=== PATIENT | male | born 1960 | race Caucasian/White ===

== ENCOUNTER 2017-12-29 09:43 | Observation (INO) | payer OTHER, SELFPAY ==
[2017-12-29] MEDS ORDERED: NA CHLORIDE 0.9% 1,000 ML ONE ×2 (10:27→12:11)
[2017-12-29 10:40] LABS: Absolute Lymphocytes (CBC) 0.8 K/uL (0.7-4.9); Absolute Monocytes 1.2 K/uL (0.1-1.3); Basophils % 0.4 % (0-1.3); Eosinophils % 0.1 % (0-4.4); Hematocrit 42.8 % (39.6-49.0); Lymphocytes % 8.4 % (15.3-44.8); MCH 29.6 pg (27.0-35.0); MPV 9.1 fL (7.6-11.3); Monocytes % 11.9 % (3.3-12.3); RBC Red Blood Cell Count 4.91 M/uL (4.33-5.43)
[2017-12-29 11:13] LABS: Albumin 3.1 g/dL (3.4-5.0); Bilirubin Direct 0.3 mg/dL (0-0.2); Bilirubin Total 0.9 mg/dL (0.2-1.0); Potassium 3.7 mmol/L (3.5-5.1)
[2017-12-29] MEDS ORDERED: INSULIN -REGULAR HUMAN 50 UNIT/0.5 ML ML ONE (11:37)
[2017-12-29 13:38] LABS: Urine Blood NEGATIVE (NEG); Urine Glucose 1+ (NEG); Urine Protein 1+ (NEG); Urine Specific Gravity >1.030 (1.005-1.030)
--- NOTE | 2017-12-29 16:27 | ER ---
Nurse's Notes [facility] Name: Pedro Leonard Age: 57 yrs Sex: Male : 1960 Arrival Date: 12/29/2017 Time: 09:46 Bed 13 Private MD: None, None Diagnosis: Weakness;Dehydration;Hyperglycemia, unspecified;Hypotension Presentation: 12/29 09:51 Presenting complaint: Patient states: Diarrhea for 3 days and joint pain, no longer la1 able to make it to the bathroom on time, denies abd pain or vomiting. Transition of care: patient was not received from another setting of care. Onset of symptoms was December 29, 2017. Risk Assessment: Do you want to hurt yourself or someone else? Patient reports no desire to harm self or others. Initial Sepsis Screen: Does the patient meet any 2 criteria? No. Patient's initial sepsis screen is negative. Does the patient have a suspected source of infection? No. Patient's initial sepsis screen is negative. Care prior to arrival: None. 09:51 Method Of Arrival: Ambulatory la1 09:51 Acuity: ARETHA 3 la1 Triage Assessment: 09:57 General: Appears in no apparent distress. uncomfortable, Behavior is calm, cooperative, hj appropriate for age. GI: Reports diarrhea. 09:57 Pain: Denies pain. hj Historical: - Allergies: 09:53 No Known Allergies; la1 - PMHx: 09:53 Diabetes - NIDDM; Hypertension; la1 - PSHx: 09:53 None; la1 - Immunization history:: Adult Immunizations up to date. - Social history:: Smoking status: Patient uses tobacco products, chewing tobacco. - Ebola Screening: : No symptoms or risks identified at this time. Screenin:56 Abuse screen: Denies threats or abuse. Denies injuries from another. Nutritional hj screening: No deficits noted. Tuberculosis screening: No symptoms or risk factors identified. Fall Risk None identified. Assessment: 10:15 Reassessment: reports diarrhea for 3 days;. General: Appears in no apparent distress. hj uncomfortable, Behavior is calm, cooperative, appropriate for age. Pain: Denies pain. Neuro: Level of Consciousness is awake, alert, obeys commands, Oriented to person, place, time, situation, Appropriate for age. Cardiovascular: Capillary refill < 3 seconds Patient's skin is warm and dry. Respiratory: Airway is patent Respiratory effort is even, unlabored, Respiratory pattern is regular, symmetrical. GI: Reports diarrhea. : No signs and/or symptoms were reported regarding the genitourinary system. EENT: No signs and/or symptoms were reported regarding the EENT system. Derm: No signs and/or symptoms reported regarding the dermatologic system. Musculoskeletal: No signs and/or symptoms reported regarding the musculoskeletal system. 11:05 Reassessment: Patient and/or family updated on plan of care and expected duration. Pain hj level reassessed. Patient is alert, oriented x 3, equal unlabored respirations, skin warm/dry/pink. awaiting results and POC;. 12:14 Reassessment: Patient and/or family updated on plan of care and expected duration. Pain hj level reassessed. Patient is alert, oriented x 3, equal unlabored respirations, skin warm/dry/pink. pt BP - 89/65; provider aware, with orders to give 1 L NS bolus;. 13:06 Reassessment: Patient and/or family updated on plan of care and expected duration. Pain hj level reassessed. Patient is alert, oriented x 3, equal unlabored respirations, skin warm/dry/pink. pt was reminded for the 3rd time for stool specimen; provided bed side commode and was told to try; family in room;. 14:00 Reassessment: able to get stool sample, sent to lab;. hj 15:08 Reassessment: Patient and/or family updated on plan of care and expected duration. Pain hj level reassessed. Patient is alert, oriented x 3, equal unlabored respirations, skin warm/dry/pink. awaiting results and POC;. 16:09 Reassessment: Patient appears in no apparent distress at this time. Patient and/or jb4 family updated on plan of care and expected duration. Pain level reassessed. Patient is alert, oriented x 3, equal unlabored respirations, skin warm/dry/pink. 16:40 Reassessment: Patient and/or family updated on plan of care and expected duration. Pain hj level reassessed. Patient is alert, oriented x 3, equal unlabored respirations, skin warm/dry/pink. for admit, hospitalist in room;. Vital Signs: 09:53 BP 106 / 68; Pulse 86; Resp 16; Temp 98.0; Pulse Ox 96% on R/A; Weight 104.33 kg (R); la1 Height 5 ft. 9 in. (175.26 cm); 11:06 BP 110 / 70; Pulse 84; Resp 18; Pulse Ox 100% on R/A; hj 12:13 BP 96 / 55; Pulse 75; Resp 18; Pulse Ox 100% on R/A; hj 13:06 BP 107 / 63; Pulse 88; Resp 18; Pulse Ox 100% on R/A; hj 14:13 BP 101 / 63; Pulse 90; Resp 18; Pulse Ox 100% on R/A; hj 15:08 BP 106 / 51; Pulse 70; Resp 18; Pulse Ox 100% on R/A; hj 15:30 BP 94 / 56 RA Supine; Pulse 74; jb4 15:32 BP 95 / 58 RA Sitting; Pulse 74; jb4 15:33 BP 93 / 58 RA Standing; Pulse 83; jb4 15:43 BP 100 / 59; Pulse 75; Resp 18; Pulse Ox 96% on R/A; hj 16:40 BP 100 / 61; Pulse 70; Resp 18; Pulse Ox 100% on R/A; hj 09:53 Body Mass Index 33.96 (104.33 kg, 175.26 cm) la1 ED Course: 09:46 Patient arrived in ED. mr 09:46 None, None is Private Physician. mr 09:52 Triage completed. la1 09:53 Arm band placed on left wrist. la1 09:54 [facility] Grijalva [facility]C [facility] kb 09:54 Rowdy Kwan MD is Attending Physician. kb 09:56 Colton Buenrostro, DIONY is Primary Nurse. hj 09:57 Patient has correct armband on for positive identification. Placed in gown. Bed in low hj position. Call light in reach. Side rails up X 1. Adult w/ patient. 10:15 Initial lab(s) drawn, by me. Inserted saline lock: 22 gauge in left forearm, using aseptic technique. Blood collected. 11:17 Notified ED physician of a critical lab result(s). BGL 429. jb4 12:28 EKG done, by tooling engineering tech. reviewed by Juana HARRIS. at1 13:16 Stool Culture Sent. hj 13:16 CDIFF Sent. hj 16:26 Chirag Craft MD is Hospitalizing Provider. kb 17:51 No provider procedures requiring assistance completed. Patient admitted, IV remains in jb4 place. intact. Administered Medications: 10:15 Drug: NS 0.9% 1000 ml Route: IV; Rate: 1000 ml; Site: left forearm; hj 11:31 Drug: Insulin Regular Human 10 units {Co-Signature: lisa (Marisel Lucas RN).} Route: hj IVP; Site: left forearm; 11:34 Follow up: Response: No adverse reaction hj 12:06 Drug: NS 0.9% 1000 ml Route: IV; Rate: 1000 ml; Site: left forearm; jb4 14:00 Follow up: IV Status: Completed infusion; IV Intake: 1000ml jb4 Point of Care Testing: Blood Glucose: 12:13 Blood Glucose: 319 mg/dL; hj 14:13 Blood Glucose: 300 mg/dL; hj Ranges: Intake: 14:00 IV: 1000ml; Total: 1000ml. jb4 Outcome: 16:27 Decision to Hospitalize by Provider. kb 17:52 Admitted to Med/surg accompanied by tech, family with patient, via wheelchair, room jb4 229, with chart, Report called to DIONY Rios 17:52 Condition: stable 17:52 Instructed on the need for admit, Demonstrated understanding of instructions. 17:52 Patient left the ED. jb4 Signatures: Juana Grijalva, KIMBERLY CHOPRA-Lakisha Oneil Emily sanchez, combine mechanic EKG Tat1 Seven Landeros RN RN la1 Colton Buenrostro RN RN hj Bryson, James, RN RN jb4 Marisel gonzalez
--- NOTE | 2017-12-29 16:27 | EDPHYS ---
Physician Documentation [facility] Name: Pedro Leonard Age: 57 yrs Sex: Male : 1960 Arrival Date: 12/29/2017 Time: 09:46 Bed 13 Private MD: None, None ED Physician Rowdy Kwan HPI: 12/29 10:51 This 57 yrs old Male presents to ER via Ambulatory with complaints of kb Diarrhea. 12:17 The patient presents to the emergency department with diarrhea. Onset: The kb symptoms/episode began/occurred 3 day(s) ago. Possible causes: unknown. The symptoms are aggravated by nothing. The symptoms are alleviated by nothing. Associated signs and symptoms: Pertinent positives: diarrhea, weakness, high blood sugar. Severity of symptoms: At their worst the symptoms were moderate severe in the emergency department the symptoms are unchanged. The patient has not experienced similar symptoms in the past. The patient has not recently seen a physician. Pt reports diarrhea for 3 days that is getting worse. Fasting blood sugar was high this morning and he feels weak. Historical: - Allergies: 09:53 No Known Allergies; la1 - PMHx: 09:53 Diabetes - NIDDM; Hypertension; la1 - PSHx: 09:53 None; la1 - Immunization history:: Adult Immunizations up to date. - Social history:: Smoking status: Patient uses tobacco products, chewing tobacco. - Ebola Screening: : No symptoms or risks identified at this time. ROS: 12:16 Constitutional: Negative for fever, chills, and weight loss, Cardiovascular: Negative kb for chest pain, palpitations, and edema, Respiratory: Negative for shortness of breath, cough, wheezing, and pleuritic chest pain, Back: Negative for injury and pain, : Negative for injury, bleeding, discharge, and swelling, MS/Extremity: Negative for injury and deformity, Skin: Negative for injury, rash, and discoloration. 12:16 Abdomen/GI: Positive for diarrhea, Negative for abdominal pain, nausea and vomiting. 12:16 Neuro: Positive for weakness. Exam: 12:16 Constitutional: This is a well developed, well nourished patient who is awake, alert, kb and in no acute distress. Head/Face: Normocephalic, atraumatic. Chest/axilla: Normal chest wall appearance and motion. Nontender with no deformity. No lesions are appreciated. Cardiovascular: Regular rate and rhythm with a normal S1 and S2. No gallops, murmurs, or rubs. Normal PMI, no JVD. No pulse deficits. Respiratory: Lungs have equal breath sounds bilaterally, clear to auscultation and percussion. No rales, rhonchi or wheezes noted. No increased work of breathing, no retractions or nasal flaring. Abdomen/GI: Soft, non-tender, with normal bowel sounds. No distension or tympany. No guarding or rebound. No evidence of tenderness throughout. Back: No spinal tenderness. No costovertebral tenderness. Full range of motion. Skin: Warm, dry with normal turgor. Normal color with no rashes, no lesions, and no evidence of cellulitis. MS/ Extremity: Pulses equal, no cyanosis. Neurovascular intact. Full, normal range of motion. Neuro: Awake and alert, GCS 15, oriented to person, place, time, and situation. Cranial nerves II-XII grossly intact. Motor strength 5/5 in all extremities. Sensory grossly intact. Cerebellar exam normal. Normal gait. Vital Signs: 09:53 BP 106 / 68; Pulse 86; Resp 16; Temp 98.0; Pulse Ox 96% on R/A; Weight 104.33 kg (R); la1 Height 5 ft. 9 in. (175.26 cm); 11:06 BP 110 / 70; Pulse 84; Resp 18; Pulse Ox 100% on R/A; hj 12:13 BP 96 / 55; Pulse 75; Resp 18; Pulse Ox 100% on R/A; hj 13:06 BP 107 / 63; Pulse 88; Resp 18; Pulse Ox 100% on R/A; hj 14:13 BP 101 / 63; Pulse 90; Resp 18; Pulse Ox 100% on R/A; hj 15:08 BP 106 / 51; Pulse 70; Resp 18; Pulse Ox 100% on R/A; hj 15:30 BP 94 / 56 RA Supine; Pulse 74; jb4 15:32 BP 95 / 58 RA Sitting; Pulse 74; jb4 15:33 BP 93 / 58 RA Standing; Pulse 83; jb4 15:43 BP 100 / 59; Pulse 75; Resp 18; Pulse Ox 96% on R/A; hj 16:40 BP 100 / 61; Pulse 70; Resp 18; Pulse Ox 100% on R/A; hj 09:53 Body Mass Index 33.96 (104.33 kg, 175.26 cm) la1 MDM: 09:54 Patient medically screened. kb 12:17 Data reviewed: vital signs, nurses notes. Data interpreted: Pulse oximetry: on room air kb is 100 %. Interpretation: normal. 15:41 Physician consultation: Chirag Craft MD was called at 15:30. kb 16:26 Counseling: I had a detailed discussion with the patient and/or guardian regarding: the kb historical points, exam findings, and any diagnostic results supporting the discharge/admit diagnosis, lab results, radiology results, the need for further work-up and treatment in the hospital. Physician consultation: Chirag Craft MD was contacted at 16:26, regarding admission, to the telemetry unit. patient's condition, and will see patient. 12/29 10:19 Order name: Amylase, Serum; Complete Time: 11:20 kb 12/29 10:19 Order name: Basic Metabolic Panel; Complete Time: 11:20 kb 12/29 10:19 Order name: CBC with Diff; Complete Time: 10:47 kb 12/29 10:19 Order name: Hepatic Function; Complete Time: 11:20 kb 12/29 10:19 Order name: Lipase; Complete Time: 11:20 kb 12/29 10:19 Order name: Stool Culture kb 12/29 10:19 Order name: IV Saline Lock; Complete Time: 10:21 kb 12/29 10:19 Order name: Labs collected and sent; Complete Time: 10:21 kb 12/29 10:19 Order name: CDIFF kb 12/29 12:06 Order name: EKG; Complete Time: 12:06 kb 12/29 13:15 Order name: Urine Dipstick--Ancillary (enter results); Complete Time: 13:43 ag 12/29 10:19 Order name: Urine Dipstick-Ancillary (obtain specimen); Complete Time: 13:16 kb 12/29 12:06 Order name: EKG - Nurse/Tech; Complete Time: 12:15 kb 12/29 14:02 Order name: Blood Glucose Level; Complete Time: 14:07 kb 12/29 15:29 Order name: Orthostatics; Complete Time: 15:38 kb Administered Medications: 10:15 Drug: NS 0.9% 1000 ml Route: IV; Rate: 1000 ml; Site: left forearm; hj 11:31 Drug: Insulin Regular Human 10 units {Co-Signature: iw (Marisel Lucas RN).} Route: hj IVP; Site: left forearm; 11:34 Follow up: Response: No adverse reaction hj 12:06 Drug: NS 0.9% 1000 ml Route: IV; Rate: 1000 ml; Site: left forearm; jb4 14:00 Follow up: IV Status: Completed infusion; IV Intake: 1000ml jb4 Point of Care Testing: Blood Glucose: 12:13 Blood Glucose: 319 mg/dL; hj 14:13 Blood Glucose: 300 mg/dL; hj Ranges: Critical Glucose Levels:Adult <50 mg/dl or >400 mg/dl <40 mg/dl or >180 mg/dl Disposition: 12/30 15:48 Co-signature as Attending Physician, Rowdy Kwan MD. Disposition: 12/29/17 16:27 Hospitalization ordered by Chirag Craft for Observation. Preliminary diagnosis are Weakness, Dehydration, Hyperglycemia, unspecified, Hypotension. - Bed requested for Telemetry/MedSurg (observation). - Status is Observation. jb4 - Condition is Stable. - Problem is new. - Symptoms are unchanged. UTI on Admission? No Signatures: Dispatcher [employer] EDMS Juana Grijalva, NAV-C LOCKSTITCH COAT JOINER-CkSeven Goins, RN RN Shantal Felix Henry, RN DIONY Pedro Palmer RN RN jb4 Rowdy Kwan MD MD Marisel Lucas RN Corrections: (The following items were deleted from the chart) 12/29 16:29 16:27 Hospitalization Ordered by Chirag Craft MD for Observation. Preliminary diagnosis kb is Weakness; Dehydration; Hyperglycemia, unspecified. Bed requested for Telemetry/MedSurg (observation). Status is Observation. Condition is Stable. Problem is new. Symptoms are unchanged. UTI on Admission? No. kb 16:53 16:29 12/29/2017 16:27 Hospitalization Ordered by Chirag Craft MD for Observation. ag Preliminary diagnosis is Weakness; Dehydration; Hyperglycemia, unspecified; Hypotension. Bed requested for Telemetry/MedSurg (observation). Status is Observation. Condition is Stable. Problem is new. Symptoms are unchanged. UTI on Admission? No. kb 17:52 16:53 12/29/2017 16:27 Hospitalization Ordered by Chirag Craft MD for Observation. jb4 Preliminary diagnosis is Weakness; Dehydration; Hyperglycemia, unspecified; Hypotension. Bed requested for Telemetry/MedSurg (observation). Status is Observation. Condition is Stable. Problem is new. Symptoms are unchanged. UTI on Admission? No. ag
[2017-12-29] MEDS ORDERED: GLUCAGON 1 MG/VIAL IM PRN ×2 (16:52)
[2017-12-29] MEDS ORDERED: D50W 25 GM/50 ML SYRINGE IV PRN ×2 (16:52)
[2017-12-29] MEDS ORDERED: Levofloxacin 250mg IV 250 MG/50 ML BAG IV SCH (17:00)
--- NOTE | 2017-12-29 17:02 | P.HP ---
Certification for Inpatient Patient admitted to: Inpatient With expected LOS: >2 Midnights Patient will require the following post-hospital care: None Practitioner: I am a practitioner with admitting privileges, knowledge of patient current condition, hospital course, and medical plan of care. Services: Services provided to patient in accordance with Admission requirements found in Title 42 Section 412.3 of the Code of Federal Regulations Patient History Date of Service: 12/29/17 Reason for admission: diarrhea History of Present Illness: 57 y/o man with HTN, DM and HPL who presents ER diarrheas for 5 days. He has watery diarrheas. He has no fever chill, no v/n, or abd pain. He has no sick contact. He is feeling weaker each day and decided to come to ER today. He has poor po intake due to recent sickness. In ER, his Bp 100s, Cr 2.0. His Bp is high usually, never this low, as he said. Allergies No Known Allergies Allergy (Verified 12/08/15 08:09) Home Medications: Amlodipine Besylate 10 mg PO 1X 12/08/15 Empagliflozin [Jardiance] 10 mg PO 1X 12/08/15 Fenofibrate 160 mg PO 1X 12/08/15 Lisinopril/Hydrochlorothiazide [Zestoretic 20-12.5 mg Tablet] 1 each PO 1X 12/07 Meloxicam [Mobic] 15 mg PO 1X 12/08/15 Metformin HCl [Glucophage] 850 mg PO 1X 12/08/15 Metoprolol Tartrate [Lopressor] 100 mg PO 1X 12/08/15 Omeprazole [Prilosec] 40 mg PO 1X 12/08/15 Review of Systems 10-point ROS is otherwise unremarkable Physical Examination - Physical Exam General: Alert, In no apparent distress HEENT: Atraumatic, PERRLA, Mucous membr. moist/pink, EOMI, Sclerae nonicteric Neck: Supple, 2+ carotid pulse no bruit, No LAD, Without JVD or thyroid abnormality Respiratory: Clear to auscultation bilaterally, Normal air movement Cardiovascular: Regular rate/rhythm, Normal S1 S2 Gastrointestinal: Normal bowel sounds, Tenderness (mild tenderness) Musculoskeletal: No tenderness Integumentary: No rashes Neurological: Normal gait, Normal speech, Normal strength at 5/5 x4 extr, Normal tone, Normal affect Lymphatics: No axilla or inguinal lymphadenopathy - Studies Laboratory Data (last 24 hrs) 12/29/17 10:17: WBC 10.1, Hgb 14.6, Hct 42.8, Plt Count 199 12/29/17 10:17: Sodium 129 L, Potassium 3.7, BUN 35 H, Creatinine 2.10 H, Glucose 429 H*, Total Bilirubin 0.9, AST 19, ALT 28, Alkaline Phosphatase 75, Amylase 12 L, Lipase 110 Microbiology Data (last 24 hrs): 12/29/17 13:04 Stool Clostridium difficile Toxin Assay - Final Assessment and Plan - Problems (Diagnosis) (1) ARF (acute renal failure) Current Visit: Yes Status: Acute Qualifiers: Acute renal failure type: unspecified Qualified Code(s): N17.9 - Acute kidney failure, unspecified (2) Dehydration Current Visit: Yes Status: Acute (3) Gastroenteritis Current Visit: Yes Status: Acute (4) DM2 (diabetes mellitus, type 2) Current Visit: Yes Status: Chronic Qualifiers: Diabetes mellitus fpc insulin use: with fpc use Diabetes mellitus complication status: without complication Qualified Code(s): E11.9 - Type 2 diabetes mellitus without complications; Z79.4 - rodent exterminator (current) use of insulin (5) Essential hypertension Current Visit: Yes Status: Chronic - Plan --stool c diff is negative --Start IV F NS 120ml/h --ABX --Insulin coverage --F/U renal function - Advance Directives Does patient have a Living Will: No Does patient have a Durable POA for Healthcare: No
--- NOTE | 2017-12-29 17:13 | EKG ---
Test Date: 2017-12-29 Test Time: 12:13:19 Mini Lab Operator: LEIDY MEASUREMENT RESULTS: Intervals: Rate: 75 PA: 164 QRSD: 120 QT: 386 QTc: 431 [place]: P: 66 PA: 164 QRS: -37 T: -1 INTERPRETIVE STATEMENTS: Normal sinus rhythm Left axis deviation Nonspecific intraventricular conduction delay T wave abnormality, consider lateral ischemia Abnormal ECG No previous ECG available for comparison Electronically Signed On 12-29-17 17:10:53 CDT by Denilson Smith
[2017-12-29] MEDS: METRONIDAZOLE 500mg IVPB 500 MG/100 ML BAG IV SCH ×2 (18:16→23:40)
[2017-12-29] MEDS: NA CHLORIDE 0.9% 1,000 ML IV SCH (18:17)
[2017-12-29 18:52] VITALS: BMI 35.1
[2017-12-29 20:40] LABS: Urine Appearance CLOUDY; Urine Blood NEGATIVE (NEG); Urine Color DK YELLOW; Urine Glucose TRACE (NEG); Urine Protein 1+ (NEG); Urine Specific Gravity 1.025 (1.005-1.030); Urine Urobilinogen 0.2 mg/dL (0.2-1.0)
[2017-12-29 20:45] LABS: Urine Bilirubin NEGATIVE (NEG); Urine Microscopic Reflex ORDER UMIC
[2017-12-29 21:06] LABS: Urine Amorphous Sediment TRACE /HPF (NONE SEEN); Urine Bacteria <20 /HPF (NONE SEEN); Urine Coarse Granular Casts 0-5 /LPF (NONE SEEN); Urine Culture Reflex Order NOT NEEDED; Urine Mucus 1+ /HPF (NONE SEEN); Urine RBC <5 /HPF (NONE SEEN)
[2017-12-29] MEDS: INSULIN GLARGINE 100 UNITS/ML SQ SCH (21:45)
[2017-12-29] MEDS: INSULIN -REGULAR HUMAN 50 UNIT/0.5 ML ML SQ SCH (21:45)
[2017-12-30] MEDS: NA CHLORIDE 0.9% 1,000 ML IV SCH ×3 (01:24→11:53)
[2017-12-30 05:34] LABS: Absolute Lymphocytes (CBC) 0.8 K/uL (0.7-4.9); Absolute Monocytes 0.8 K/uL (0.1-1.3); Absolute Neutrophil 3.2 K/uL (1.8-8.0); Basophils % 0.6 % (0-1.3); Eosinophils % 1.6 % (0-4.4); Hematocrit 33.1 % (39.6-49.0); Lymphocytes % 16.7 % (15.3-44.8); MCV 86.3 fL (80-100); Monocytes % 15.7 % (3.3-12.3); RBC Red Blood Cell Count 3.84 M/uL (4.33-5.43)
[2017-12-30] MEDS: METRONIDAZOLE 500mg IVPB 500 MG/100 ML BAG IV SCH (05:43)
[2017-12-30 05:55] LABS: Albumin 2.4 g/dL (3.4-5.0); Bilirubin Total 0.4 mg/dL (0.2-1.0); Protein, Total 5.4 g/dL (6.4-8.2)
[2017-12-30] MEDS ORDERED: POTASSIUM 25 MEQ EFFERV TAB PO ONE (06:44)
[2017-12-30] MEDS: INSULIN -REGULAR HUMAN 50 UNIT/0.5 ML ML SQ SCH ×4 (07:58→21:40)
[2017-12-30] MEDS ORDERED: PNEUMOCOCCAL VACCINE 0.5 ML IMVAC ONE (10:00)
--- NOTE | 2017-12-30 10:38 | P.PN ---
Subjective Date of Service: 12/30/17 Chief Complaint: diarrhea Subjective: Improving (Patient is doing well no further diarrhea no new complaints) Review of Systems Unremarkable Physical Examination - Vital Signs Temperature: 98.6 F Blood Pressure: 108/52 Pulse: 84 Respirations: 17 Pulse Ox (%): 94 - Physical Exam General: Alert, Oriented x3 Respiratory: Clear to auscultation bilaterally Cardiovascular: No edema, Normal S1 S2 Gastrointestinal: Normal bowel sounds, Soft and benign - Studies Laboratory Data (last 24 hrs) 12/29/17 10:17: WBC 10.1, Hgb 14.6, Hct 42.8, Plt Count 199 12/29/17 10:17: Sodium 129 L, Potassium 3.7, BUN 35 H, Creatinine 2.10 H, Glucose 429 H*, Total Bilirubin 0.9, AST 19, ALT 28, Alkaline Phosphatase 75, Amylase 12 L, Lipase 110 Microbiology Data (last 24 hrs): 12/29/17 13:04 Stool Clostridium difficile Toxin Assay - Final Assessment & Plan - Problems (Diagnosis) (1) Gastroenteritis Current Visit: Yes Status: Acute Plan: Patient is 57 years of age admitted with acute diarrhea electrolyte imbalance renal insufficiency he is doing much better no further episodes of diarrhea renal function is improving labs all reviewed is hypokalemic correct potassium possible discharge tomorrow vital signs all stable
[2017-12-30] MEDS: INSULIN GLARGINE 100 UNITS/ML SQ SCH (21:00)
[2017-12-30] MEDS ORDERED: INSULIN GLARGINE 100 UNITS/ML SQ SCH (22:00)
[2017-12-30] MEDS ORDERED: SODIUM BICARB 50 MEQ/50ML VIAL ONE (22:33)
[2017-12-30] MEDS ORDERED: D5W 1,000 ML IV ONE (22:34)
[2017-12-30] MEDS: D5W 1,000 ML with NA BICARB 8.4% 50 MEQ IV SCH ×2 (23:32)
[2017-12-31 04:54] LABS: Absolute Lymphocytes (CBC) 0.8 K/uL (0.7-4.9); Absolute Monocytes 0.6 K/uL (0.1-1.3); Absolute Neutrophil 2.6 K/uL (1.8-8.0); Basophils % 0.4 % (0-1.3); Eosinophils % 3.1 % (0-4.4); Hematocrit 35.7 % (39.6-49.0); Lymphocytes % 18.6 % (15.3-44.8); MCH 29.3 pg (27.0-35.0); MCV 86.2 fL (80-100); Monocytes % 15.3 % (3.3-12.3); RBC Red Blood Cell Count 4.14 M/uL (4.33-5.43)
[2017-12-31] MEDS: D5W 1,000 ML with NA BICARB 8.4% 50 MEQ IV SCH ×2 (05:00)
[2017-12-31 05:13] LABS: Albumin 2.6 g/dL (3.4-5.0); Bilirubin Total 0.3 mg/dL (0.2-1.0); Magnesium 1.9 mg/dL (1.8-2.4); Phosphorus 2.5 mg/dL (2.5-4.9); Potassium 3.3 mmol/L (3.5-5.1); Protein, Total 5.7 g/dL (6.4-8.2)
[2017-12-31 05:43] LABS: Blood Morphology Comment NOT SEEN (NOT SEEN); Platelet Estimate ADEQ
[2017-12-31] MEDS: NA CHLORIDE 0.9% 1,000 ML IV SCH ×2 (06:29→10:40)
--- NOTE | 2017-12-31 06:29 | P.PN ---
Subjective Date of Service: 12/30/17 Notified that patient's daughter wanted to talk to me regarding patient's care. According to family patient was still having diarrhea. This is apparently those 5th to 6th day that he has had diarrhea and has had stool incontinence. He is unable to control his diarrhea. This is a new symptom and has never happened to him before. He was also having abdominal discomfort. However, this has improved. His renal insufficiency has also improved. She is worried that he may have colitis that is not being treated adequately as he is not on antibiotics. His symptoms do look to be improved overall. However, because of therapy numerous concerns I will add additional labs and if he has any more diarrhea will recollect stool samples for fecal leukocytes and fecal culture as well as ova and parasites. Also go ahead and CT his abdomen and pelvis to see if there is anything else we could be missing. Will discuss with family regarding plan of care. Review of Systems 10-point ROS is otherwise unremarkable Physical Examination - Vital Signs Temperature: 97.7 F Blood Pressure: 134/62 Pulse: 92 Respirations: 18 Pulse Ox (%): 94 - Physical Exam General: Alert, In no apparent distress, Oriented x3 Respiratory: Clear to auscultation bilaterally, Normal air movement Cardiovascular: Regular rate/rhythm, Normal S1 S2, No murmurs Gastrointestinal: Normal bowel sounds, Soft and benign, No tenderness, Distended Musculoskeletal: No clubbing, No swelling, No tenderness - Studies Microbiology Data (last 24 hrs): 12/29/17 13:04 Stool Clostridium difficile Toxin Assay - Final Medications List Reviewed: Yes Assessment & Plan - Problems (Diagnosis) (1) Stool incontinence Current Visit: Yes Status: Acute (2) Diarrhea Current Visit: Yes Status: Acute (3) Hypoalbuminemia Current Visit: Yes Status: Acute (4) ARF (acute renal failure) Current Visit: Yes Status: Acute Qualifiers: Acute renal failure type: unspecified Qualified Code(s): N17.9 - Acute kidney failure, unspecified (5) Dehydration Current Visit: Yes Status: Acute - Plan Plan: 1. IV hydration will continue 2. CT scan of the abdomen and pelvis if renal function is improved 3. additional stool studies including fecal leukocytes and fecal culture and ova and parasites 4. if he tolerates diet and his labs and CT scan were negative as well as improvement of his renal function he may be stable for discharge. Because concern is that his nutritional status has declined but as long as he is eating better then hopefully this will correct itself over time. Plan to discharge in: 24 Hours - Advance Directives Does patient have a Living Will: No Does patient have a Durable POA for Healthcare: No Time Spent Managing PTS Care (In Minutes): 30
[2017-12-31] MEDS ORDERED: KCL 20 MEQ/100 mL IVPB 20 MEQ/100 ML BAG IV SCH (07:00)
--- NOTE | 2017-12-31 08:58 | RAD REPORT ---
EXAM DESCRIPTION: CT - Abdomen Pelvis W Contrast - 12/31/2017 8:12 am CLINICAL HISTORY: Colitis, persistent diarrhea, incontinence COMPARISON: None. TECHNIQUE: Biphasic, helical CT imaging of the abdomen and pelvis was performed following 100 ml non -ionic IV contrast. Oral contrast was given. All CT scans are performed using dose optimization technique as appropriate and may include automated exposure control or mA/KV adjustment according to patient size. FINDINGS: No suspicious findings in the lung bases. The liver, spleen, and pancreas show no suspicious focal findings. Gallbladder and biliary tree are a lso without suspicious finding. Liver attenuation does indicate a mild diffuse fatty infiltration. Symmetric renal function is seen with no hydronephrosis or suspicious renal mass. No pyelonephritis o r suspicious renal parenchymal process. Nonobstructing 10 x 4 mm calcification is seen lower pole trevor yx on the left. Partially filled urinary bladder shows no suspicious finding. Prostate gland and semi nal vesicles are normal. No gastric dilatation or gastric wall thickening identifiable. All oral contrast has exited the stoma ch. No dilated small bowel. The appendix is normal. Patient has quite a few small mesenteric lymph no ligia. Oral CT contrast has reached the distal rectum. There is a moderate amount of stool filling but not dilating rectosigmoid portion of the colon. Sigmoid is tortuous and redundant. Wall thickening an d mass are not identifiable in the rectosigmoid colon. No measurable diverticulosis. There is a nodul ar thickened mucosal pattern in the right-side colon at the ileocecal valve. Colon is mostly decompre ssed which makes CT assessment limited. The finding is of sufficient concern for a mass to warrant a dedicated colonoscopy examination. No free air, free fluid or pneumatosis. No bulky lymphadenopathy or omental thickening. A small fat only umbilical hernia is present along with a small fat filled left inguinal hernia. No adrenal abno rmality. No suspicious bony findings. IMPRESSION: Thickened, nodular appearance to colon at the ileocecal valve. This has a masslike appe arance. While this may simply be an artifact of a decompressed colon, mass lesion is not excluded. Th is finding is of sufficient concern to warrant dedicated colonoscopy. Nonspecific small mesenteric lymph nodes. No bulky lymphadenopathy. Fatty infiltration of the liver. No focal liver lesions seen.
[2017-12-31] MEDS: INSULIN -REGULAR HUMAN 50 UNIT/0.5 ML ML SQ SCH (09:01)
--- NOTE | 2017-12-31 10:01 | P.DS ---
Admission Date: 12/29/17 Discharge Date: 12/31/17 Disposition: ROUTINE DISCHARGE Discharge Condition: FAIR Reason for Admission: diarrhea - Problems (1) Gastroenteritis Current Visit: Yes Status: Acute Vital Signs/Physical Exam: Temp Pulse Resp BP Pulse Ox 97.7 F 92 H 18 134/62 94 12/31/17 06:29 12/31/17 06:29 12/31/17 06:29 12/31/17 06:29 12/31/17 06:29 Laboratory Data at Discharge: WBC 4.1 K/uL (4.3-10.9) L D 12/31/17 04:17 Hgb 12.1 g/dL (13.6-17.9) L 12/31/17 04:17 Hct 35.7 % (39.6-49.0) L 12/31/17 04:17 Plt Count 162 K/uL (152-406) 12/31/17 04:17 Sodium 138 mmol/L (136-145) 12/31/17 04:17 Potassium 3.3 mmol/L (3.5-5.1) L 12/31/17 04:17 BUN 13 mg/dL (7-18) D 12/31/17 04:17 Creatinine 0.90 mg/dL (0.55-1.3) 12/31/17 04:17 Glucose 306 mg/dL (74-106) H 12/31/17 04:17 Phosphorus 2.5 mg/dL (2.5-4.9) 12/31/17 04:17 Magnesium 1.9 mg/dL (1.8-2.4) 12/31/17 04:17 Total Bilirubin 0.3 mg/dL (0.2-1.0) 12/31/17 04:17 AST 18 U/L (15-37) 12/31/17 04:17 ALT 26 U/L (12-78) 12/31/17 04:17 Alkaline Phosphatase 70 U/L (45-117) 12/31/17 04:17 Amylase 12 U/L (25-115) L 12/29/17 10:17 Lipase 110 U/L (73-393) 12/29/17 10:17 Home Medications: Amlodipine Besylate 10 mg PO DAILY 12/08/15 Meloxicam [Mobic] 15 mg PO DAILY 12/08/15 Metoprolol Tartrate [Lopressor] 2 tab PO BID 12/08/15 Atorvastatin Calcium [Lipitor*] 40 mg PO BEDTIME 12/29/17 Buspirone HCl [Buspar] 10 mg PO BID 12/29/17 Cholecalciferol (Vitamin D3) [Vitamin D3] 1 cap PO DAILY 12/29/17 Clonidine HCl [Catapres] 0.1 mg PO BID 12/29/17 Glipizide [Glipizide ER] 1 tab PO DAILY WITH BREAKFAST 12/29/17 Lisinopril/Hydrochlorothiazide [Zestoretic 20-25 mg Tablet] 2 tab PO DAILY 12/29 Patient Discharge Instructions: Patient to be discharged home resume all medications follow up with his primary care physician. Patient take over-the- counter Imodium for diarrhea Diet: Regular Activity: Ad estephanie
--- NOTE | 2017-12-31 10:04 | P.DS ---
Admission Date: 12/29/17 Discharge Date: 12/31/17 Disposition: ROUTINE DISCHARGE Discharge Condition: FAIR Reason for Admission: diarrhea - Problems (1) Gastroenteritis Current Visit: Yes Status: Acute Brief History of Present Illness: Patient is 57 years of age admitted with diarrhea Hospital Course: He did well his kidney function improved patient was rehydrated C. difficile for stool was negative at the time of discharge he was little hypokalemic bedpost being replaced while signs all stable chest clear abdomen soft extremities no edema downs to follow up with primary care physician CT scan of the abdomen was nondiagnostic Vital Signs/Physical Exam: Temp Pulse Resp BP Pulse Ox 97.7 F 92 H 18 134/62 94 12/31/17 06:29 12/31/17 06:29 12/31/17 06:29 12/31/17 06:29 12/31/17 06:29 Laboratory Data at Discharge: WBC 4.1 K/uL (4.3-10.9) L D 12/31/17 04:17 Hgb 12.1 g/dL (13.6-17.9) L 12/31/17 04:17 Hct 35.7 % (39.6-49.0) L 12/31/17 04:17 Plt Count 162 K/uL (152-406) 12/31/17 04:17 Sodium 138 mmol/L (136-145) 12/31/17 04:17 Potassium 3.3 mmol/L (3.5-5.1) L 12/31/17 04:17 BUN 13 mg/dL (7-18) D 12/31/17 04:17 Creatinine 0.90 mg/dL (0.55-1.3) 12/31/17 04:17 Glucose 306 mg/dL (74-106) H 12/31/17 04:17 Phosphorus 2.5 mg/dL (2.5-4.9) 12/31/17 04:17 Magnesium 1.9 mg/dL (1.8-2.4) 12/31/17 04:17 Total Bilirubin 0.3 mg/dL (0.2-1.0) 12/31/17 04:17 AST 18 U/L (15-37) 12/31/17 04:17 ALT 26 U/L (12-78) 12/31/17 04:17 Alkaline Phosphatase 70 U/L (45-117) 12/31/17 04:17 Amylase 12 U/L (25-115) L 12/29/17 10:17 Lipase 110 U/L (73-393) 12/29/17 10:17 Home Medications: Amlodipine Besylate 10 mg PO DAILY 12/08/15 Meloxicam [Mobic] 15 mg PO DAILY 12/08/15 Metoprolol Tartrate [Lopressor] 2 tab PO BID 12/08/15 Atorvastatin Calcium [Lipitor*] 40 mg PO BEDTIME 12/29/17 Buspirone HCl [Buspar] 10 mg PO BID 12/29/17 Cholecalciferol (Vitamin D3) [Vitamin D3] 1 cap PO DAILY 12/29/17 Clonidine HCl [Catapres] 0.1 mg PO BID 12/29/17 Glipizide [Glipizide ER] 1 tab PO DAILY WITH BREAKFAST 12/29/17 Lisinopril/Hydrochlorothiazide [Zestoretic 20-25 mg Tablet] 2 tab PO DAILY 12/29 Patient Discharge Instructions: Patient to be discharged home resume all medications follow up with his primary care physician. Patient take over-the- counter Imodium for diarrhea Diet: Regular Activity: Ad estephanie
[2017-12-31 10:42] VITALS: BP 154/87; TEMP 97.5
[2017-12-31 10:52] VITALS: O2SAT 93
[2017-12-31] MEDS ORDERED: PNEUMOCOCCAL VACCINE 0.5 ML IMVAC ONE (12:00)
== END 2017-12-31 11:45 | disposition home or self-care (01) ==
LOC: ER 09:43 → ERHOLD 16:28 → 2ND 17:16
PROVIDERS: ADMIT Internal Medicine Hematology & Oncology; ATTEND Internal Medicine Hematology & Oncology
DX: K52.9 Noninfective gastroenteritis and colitis, unspecified (principal); E87.6 Hypokalemia; E88.09 Other disorders of plasma-protein metabolism, not elsewhere classified; N17.9 Acute kidney failure, unspecified; E86.0 Dehydration; I10 Essential (primary) hypertension; E11.9 Type 2 diabetes mellitus without complications; R15.9 Full incontinence of feces; Z23 Encounter for immunization
CPT/HCPCS: 36415; 74177; 80048; 80053; 80076; 81003; 81015; 82150; 82962; 83690; 83735; 84100; 85025; 87045; 87046; 87177; 87209; 87493; 89055; 90670; 93005; 96361; 96374; 99285; G0009; G0378; J7030; Q9967

== ENCOUNTER 2019-12-30 07:18 | Day surgery (SDC) | payer OTHER ==
[2019-12-30] MEDS ORDERED: NA CHLORIDE 0.9% 1,000 ML ONE (07:47)
[2019-12-30] MEDS ORDERED: LIDOCAINE 1% MPF 5 ML VIAL ONE (08:11)
[2019-12-30] MEDS ORDERED: propofoL 200 MG/20 ML VIAL IV ONE ×2 (08:11→09:09)
--- NOTE | 2019-12-30 09:18 | ENDO RPT ---
[address], [address] COLONOSCOPY PROCEDURE REPORT EXAM DATE: 12/30/2019 PATIENT NAME: Pedro Leonard MR #: [id number] BIRTHDATE: 1960 ATTENDING: Arnaud Jones DR STATUS: outpatient CLUTCH OPERATOR: Naheed Javier RN and Shyam Cuellar [facility] INDICATIONS: The patient is a 59 yr old Male here for a colonoscopy due to colon cancer screening PROCEDURE PERFORMED: Colonoscopy with biopsy - cold polypectomy MEDICATIONS: Per Anesthesia. ESTIMATED BLOOD LOSS: None CONSENT: The patient understands the risks and benefits of the procedure and understands that these risks include, but are not limited to: sedation, allergic reaction, infection, perforation and/or bleeding. Alternative means of evaluation and treatment include, among others: physical exam, x-rays, and/or surgical intervention. The patient elects to proceed with this endoscopic procedure. DESCRIPTION OF PROCEDURE: During intra-op preparation period all mechanical medical equipment was checked for proper function. Hand hygiene and appropriate measures for infection prevention was taken. Procedure, possible complications, alternatives including, but not limited to possibility of bleeding, perforation, tear, infection, sepsis, need for surgery, need for blood transfusion, were explained to the patient. After the risks, benefits and alternatives of the procedure were thoroughly explained, Informed consent was verified, confirmed and timeout was successfully executed by the treatment team. The patient was placed in the left lateral position. A digital rectal exam was performed and revealed internal hemorrhoids. After appropriate level of anesthesia, the scope was passed. The EC-[id number] ([id number] endoscope was introduced through the anus and advanced to the cecum, which was identified by both the appendix and ileocecal valve. The quality of the prep was fair. The instrument was then slowly withdrawn as the colon was fully examined. Scope withdrawal time was 15 minutes. COLON FINDINGS: Multiple small smooth sessile polyps with friable surfaces were found throughout the entire examined colon. A polypectomy was performed with a cold snare and with cold forceps. The resection was complete, the polyp tissue was completely retrieved and sent to histology. Mild diverticulosis was noted in the sigmoid colon. No bleeding was noted from the diverticulosis. Small internal hemorrhoids were found. Retroflexed views revealed no abnormalities. The scope was then completely withdrawn from the patient and the procedure terminated. ADVERSE EVENTS: There were no complications. IMPRESSIONS: 1. Multiple small sessile polyps were found throughout the entire examined colon; polypectomy was performed with a cold snare and with cold forceps 2. Mild diverticulosis was noted in the sigmoid colon 3. Small internal hemorrhoids RECOMMENDATIONS: 1. avoid NSAIDS for 2 weeks 2. await biopsy results 3. fiber rich diet 4. follow-up: office 2 week(s) 5. Monitor for any evidence of rectal bleeding. 6. hemorrhoidal hygiene 7. increase dietary water RECALL: Return in 1 year(s) for Colonoscopy, pending biopsy results. Pending Biopys Results Arnaud Jones DR eSigned: Arnaud Jones DR 12/30/2019 9:17 AM cc: CPT CODES: ICD9 CODES: PATIENT NAME: Pedro Leonard MR#: [id number]
[2019-12-30 09:37] VITALS: TEMP 97.7
[2019-12-30 09:38] VITALS: O2SAT 98
[2019-12-30 09:50] VITALS: BP 107/72
== END 2019-12-30 09:54 | disposition home or self-care (01) ==
LOC: OR 07:18
PROVIDERS: ATTEND Surgery
PROC: 0DBN8ZX Excision of Sigmoid Colon, Via Natural or Artificial Opening Endoscopic, Diagnostic (ICD-10-PCS; 2019-12-30)
PROC: 0DBP8ZX Excision of Rectum, Via Natural or Artificial Opening Endoscopic, Diagnostic (ICD-10-PCS; 2019-12-30)
PROC: 0DBH8ZX Excision of Cecum, Via Natural or Artificial Opening Endoscopic, Diagnostic (ICD-10-PCS; principal; 2019-12-30 08:30)
DX: Z12.11 Encounter for screening for malignant neoplasm of colon (principal); D12.0 Benign neoplasm of cecum; D12.5 Benign neoplasm of sigmoid colon; K62.1 Rectal polyp; K57.30 Diverticulosis of large intestine without perforation or abscess without bleeding; K64.8 Other hemorrhoids; Z11.59 Encounter for screening for other viral diseases; E11.9 Type 2 diabetes mellitus without complications; I10 Essential (primary) hypertension; E78.00 Pure hypercholesterolemia, unspecified; K21.9 Gastro-esophageal reflux disease without esophagitis; F17.220 Nicotine dependence, chewing tobacco, uncomplicated; Z79.4 Long term (current) use of insulin; Z79.899 Other long term (current) drug therapy
CPT/HCPCS: 45385; 82947; 88305; U0002; J2704 ×2; J7030

== ENCOUNTER 2021-04-21 07:14 | Day surgery (SDC) | payer OTHER ==
[2021-04-21] MEDS ORDERED: NA CHLORIDE 0.9% 1,000 ML ONE (07:41)
[2021-04-21] MEDS ORDERED: propofoL 200 MG/20 ML VIAL IV ONE ×2 (09:02→09:24)
[2021-04-21] MEDS ORDERED: LIDOCAINE 1% MPF 5 ML VIAL ONE (09:02)
--- NOTE | 2021-04-21 09:58 | ENDO RPT ---
[address], [address] COLONOSCOPY PROCEDURE REPORT EXAM DATE: 04/21/2021 PATIENT NAME: Pedro Leonard MR #: [id number] BIRTHDATE: 1960 ATTENDING: Arnaud Jones DR STATUS: outpatient PHYSICIAN ANESTHESIOLOGIST: Leah Chan and Laya Henson RN INDICATIONS: The patient is a 60 yr old Male here for a colonoscopy due to personal history of colon polyps PROCEDURE PERFORMED: Colonoscopy with biopsy - cold polypectomy MEDICATIONS: Per Anesthesia. ESTIMATED BLOOD LOSS: None CONSENT: The patient understands the risks and benefits of the procedure and understands that these risks include, but are not limited to: sedation, allergic reaction, infection, perforation and/or bleeding. Alternative means of evaluation and treatment include, among others: physical exam, x-rays, and/or surgical intervention. The patient elects to proceed with this endoscopic procedure. DESCRIPTION OF PROCEDURE: During intra-op preparation period all mechanical medical equipment was checked for proper function. Hand hygiene and appropriate measures for infection prevention was taken. Procedure, possible complications, alternatives including, but not limited to possibility of bleeding, perforation, tear, infection, sepsis, need for surgery, need for blood transfusion, were explained to the patient. After the risks, benefits and alternatives of the procedure were thoroughly explained, Informed consent was verified, confirmed and timeout was successfully executed by the treatment team. The patient was placed in the left lateral position. A digital rectal exam was performed and revealed internal hemorrhoids. After appropriate level of anesthesia, the scope was passed. The [id number] ([id number]) endoscope was introduced through the anus and advanced to the cecum, which was identified by both the appendix and ileocecal valve. The quality of the prep was fair. The instrument was then slowly withdrawn as the colon was fully examined. Scope withdrawal time was 12 minutes. COLON FINDINGS: A polypoid shaped and smooth semi-pedunculated polyp ranging between 3-5mm in size was found in the sigmoid colon. Mild diverticulosis was noted in the sigmoid colon. No bleeding was noted from the diverticulosis. Retroflexed views revealed no abnormalities. The scope was then completely withdrawn from the patient and the procedure terminated. ADVERSE EVENTS: There were no complications. IMPRESSIONS: 1. Semi-pedunculated polyp ranging between 3-5mm in size was found in the sigmoid colon 2. Internal hemorrhoids RECOMMENDATIONS: 1. avoid NSAIDS for 2 weeks 2. await biopsy results 3. fiber rich diet 4. follow-up: office 2 week(s) 5. Monitor for any evidence of rectal bleeding. 6. hemorrhoidal hygiene 7. yearly hemoquant RECALL: Return in 2 year(s) for Colonoscopy, pending biopsy results. Arnaud Jones DR eSigned: Arnaud Jones DR 04/21/2021 9:58 AM cc: CPT CODES: ICD9 CODES: PATIENT NAME: Pedro Leonard MR#: [id number]
[2021-04-21 11:09] VITALS: TEMP 97.3
[2021-04-21 11:12] VITALS: BP 128/69; O2SAT 98
== END 2021-04-21 10:40 | disposition home or self-care (01) ==
LOC: OR 07:14
PROVIDERS: ATTEND Surgery
PROC: 0DBN8ZX Excision of Sigmoid Colon, Via Natural or Artificial Opening Endoscopic, Diagnostic (ICD-10-PCS; principal; 2021-04-21 08:45)
DX: Z86.010 Personal history of colon polyps (principal); Z20.822 Contact with and (suspected) exposure to COVID-19; K63.5 Polyp of colon; K57.90 Diverticulosis of intestine, part unspecified, without perforation or abscess without bleeding; K64.8 Other hemorrhoids
CPT/HCPCS: 82947; 88305; 45380; U0003; J2704 ×2; J7030